=== PATIENT | female | born 1965 | race Caucasian/White ===

== ENCOUNTER 2021-10-21 14:02 | Emergency (ER) | payer OTHER, SELFPAY ==
[2021-10-21 14:04] VITALS: BP 119/84; PULSE 105; RESP 18; TEMP 37.7; O2SAT 98; BMI 50.1
--- NOTE | 2021-10-21 14:39 | [facility].EDGENADL ---
ED Disposition Clinical Impression: COVID-19 Disposition: Home, Self-Care Condition on Discharge: Good Instructions: DI for Nausea -- Adult Referrals: Trish Ya [Primary Care Provider] - - Critical Care Critical Care Time: No Attestation: On 10/21/21, the high probability of a clinically significant, sudden or life threatening deterioration of the following system(s) required my full and direct attention, intervention and personal management. The time I documented below is in addition to time spent performing reported procedures but includes the following listed in this critical care notation. Medical Decision Making - Medical Records Medical records reviewed: Yes: I reviewed the patient's medical records. - Jean Inquiry Pt receiving controlled substance: No Vital Signs: 10/21/21 14:04 Temperature 99.9 F H Temperature Source Oral Pulse Rate [Radial] 105 H Respiratory Rate 18 Blood Pressure [Right Arm] 119/84 Blood Pressure Mean [Right Arm] 95 Blood Pressure Position [Right Arm] Sitting 02 Sat by Pulse Oximetry 98 Oxygen Delivery Method Room Air - Lab Data Lab results reviewed: Yes: I reviewed the patient's lab results. Lab Results 10/21/21 14:45: WBC 3.6 L, RBC 4.85, Hgb 13.6, Hct 40.7, MCV 83.9, MCH 28.0, MCHC 33.4, RDW 14.8, Plt Count 178, MPV 8.3, Neut % (Auto) 71.0, Lymph % (Auto) 19.5, [place] % (Auto) 6.6, Eos % (Auto) 0.1, Baso % (Auto) 2.8 H, Neut # (Auto) 2.6, Lymph # (Auto) 0.7, [place] # (Auto) 0.2, Eos # (Auto) 0.0, Baso # (Auto) 0.1 10/21/21 14:45: Sodium 133 L, Potassium 4.2, Chloride 95 L, Carbon Dioxide 28, Anion Gap 14.2, BUN 15, Creatinine 1.10 H, Estimated Creat Clear 50, Estimated GFR 51 L, Est GFR ( Amer) 62, Glucose 128 H, Calcium 8.9, Magnesium 1.6, Total Bilirubin 0.8, AST 40 H, ALT 41, Alkaline Phosphatase 75, Total Protein 7.1, Albumin 4.3, Globulin 2.8, Albumin/Globulin Ratio 1.5 10/21/21 14:49: POC Glucose 124 H Result diagrams: 10/21/21 14:45 10/21/21 14:45 Orders (Tests/Meds): ED MEDICATIONS Discontinued Medications Generic Name Dose Route Start Last Admin Trade Name Luh PRN Reason Stop Dose Admin Lactated Ringer's 500 mls @ 999 mls/hr 10/21/21 14:30 10/21/21 15:04 Lactated Ringer's 1000 Ml Bag IV 10/21/21 15:00 999 mls/hr .Q31M DORY Administration Ondansetron HCl 4 mg 10/21/21 14:27 10/21/21 15:04 Ondansetron 4mg/2ml Vial IV 10/21/21 14:28 4 mg ONCE ONE Administration Medical Decision Narrative: Patient is a 48-year-old morbidly obese female presenting for chief complaint of malaise, diarrhea, fever, dry cough in the setting of a COVID-19 infection. Differential diagnosis includes, but is not limited to, COVID-19 viral syndrome, dehydration, electrolyte abnormality, other. On initial exam, patient is hemodynamically stable and mildly tachycardic with heart rate of 105. She is afebrile. Lungs are clear to auscultation, abdomen is soft, nondistended and nontender. Patient was given 1 L of IV fluids and IV Zofran. She was evaluated CBC, CMP, magnesium; lab work is nonactionable. May be consistent with mild dehydration. Patient continues to be stable in the emergency department. Patient was counseled on supportive care at home and discharged in stable condition. Her presentation is consistent with COVID-19 viral syndrome. General Adult HPI - General Chief complaint: Nausea/Vomiting/Diarrhea Stated complaint: cov+ 1/10, vomiting, weakness, fever Time Seen by Provider: 10/21/21 14:20 Mode of Arrival: Ambulatory Limitations: No Limitations Description of Symptoms (Recalled from ER Triage Doc. by RN): TO ED PER [facility] PT STATES SATURDAY STARTED WITH FEVER, NAUSEA, COUGH STATES TESTED +COVID SATURDAY. PT STATES SYMPTOMS ARE GETTING WORSE C/O NAUSEA, DIARRHEA, POOR PO INTAKE. DENIES ANY SOB, CHEST OR ABD PAIN - History of Present Illness HPI narrative: Roula is a 56-year-old morbidly obese female presenting for [facility]
[2021-10-21 14:56] LABS: POC Glucose,Bedside 124 (70-110)
[2021-10-21 15:14] LABS: Basophils # 0.1 K/mm3 (0-0.2); Basophils % 2.8 % (0.1-2.0); Eosinophils % 0.1 % (0.1-12.0); Hematocrit 40.7 % (37.0-47.0); Hemoglobin 13.6 g/dL (12.2-16.2); Lymphocytes # 0.7 K/mm3 (0.7-4.5); Lymphocytes % 19.5 % (10-50); Mean Corpuscular HGB Conc 33.4 g/dL (31.8-35.4); Mean Corpuscular Volume 83.9 fl (81-99); Mean Platelet Volume 8.3 fl (7.4-10.4); Monocytes # 0.2 K/mm3 (0.1-1.0); Monocytes % 6.6 % (1.7-9.3); Neutrophils # 2.6 K/mm3 (1.8-7.8); Platelet Count 178 K/mm3 (142-424); Red Blood Count 4.85 M/mm3 (4.20-5.40); Red Cell Distribution Width 14.8 % (11.5-17.5); White Blood Count 3.6 K/mm3 (4.8-10.8)
[2021-10-21 15:26] LABS: Alanine Aminotransferase 41 U/L (12-78); Albumin Level 4.3 g/dl (3.5-5.0); Albumin/Globulin Ratio 1.5 (1.1-1.8); Alkaline Phosphatase 75 U/L (38-126); Anion Gap 14.2 mEq/L (5-15); Aspartate Amino Transferase 40 U/L (14-36); Bilirubin,Total 0.8 mg/dl (0.2-1.3); Blood Urea Nitrogen 15 mg/dl (7-17); Calcium 8.9 mg/dl (8.4-10.2); Carbon Dioxide 28 mmol/L (22.0-30.0); Chloride 95 mmol/L (98-107); Creatinine Clearance Estimated 50 mL/min (50-200); Estimated Glomerular Filt Rate 51 ml/min (>60); GFR (African American) 62 ML/MIN (>60); Globulin 2.8 g/dL (1.3-3.2); Glucose 128 mg/dl (74-100); Magnesium 1.6 mg/dl (1.6-2.3); Potassium 4.2 mmoL/L (3.5-5.1); Sodium 133 mmol/L (136-145); Total Protein,Serum 7.1 g/dl (6.3-8.2)
[2021-10-21 17:16] VITALS: BP 132/74; PULSE 74; RESP 20; TEMP 36.6; O2SAT 98
== END 2021-10-21 17:17 | disposition home or self-care (01) ==
PROVIDERS: Emergency Provider Emergency Medicine; PCP Nurse Practitioner Family
DX: U07.1 COVID-19 (principal)
CPT/HCPCS: 80053; 82962; 83735; 85025; 96365; 96375; 99282; J2405

== ENCOUNTER 2022-11-10 22:13 | Emergency (ER) | payer OTHER, SELFPAY ==
[2022-11-10 22:14] VITALS: BP 135/69; PULSE 68; RESP 19; TEMP 37.1; O2SAT 98; BMI 50.5
--- NOTE | 2022-11-10 22:28 | PC.NURSE ---
Dr. La at [facility] speaking with pt
--- NOTE | 2022-11-10 22:49 | PC.NURSE ---
Doctor reports patient is going to leave without being seen because this is probably just a local reaction. Patient educated by RN that if anything changes to come right back to the ED. Patient's airway is patent, no concern for compromise.
[2022-11-10 22:51] VITALS: BP 138/69; PULSE 63; RESP 19; TEMP 36.7; O2SAT 98
== END 2022-11-10 22:52 | disposition home or self-care (01) ==
LOC: ER 22:22
PROVIDERS: Emergency Provider Emergency Medicine; PCP Nurse Practitioner Family
DX: Z53.21 Procedure and treatment not carried out due to patient leaving prior to being seen by health care provider (principal)
CPT/HCPCS: 99211